=== PATIENT | female | born 1965 | race Caucasian/White ===

== ENCOUNTER → 2020-07-21 | Outpatient (CLI) | payer OTHER ==
[~2020-07-21] MED LIST: FLUOXETINE HCL40 MG PO; FOLIC ACID 1 MG1 MG PO; FUROSEMIDE20 MG PO; GABAPENTIN800 MG PO; K-DUR TAB 20 M20 MEQ PO; LASIX TAB 20 MG20 MG PO; LEVOTHYROXINE112 MCG PO; NEUPOGEN SC; OMEPRAZOLE40 MG PO; OXYCODONE HCL10 MG PO; OXYCODONE HCL5 MG PO; PANTOPRAZOLE SO40 MG PO; POTASSIUM CHLO20 ME1 PO; VENTOLIN HFA 66.7 GM INH; VIREAD300 MG PO
== END ==
LOC: CT 07-15 11:00
DX: R91.1 Solitary pulmonary nodule (principal); R16.2 Hepatomegaly with splenomegaly, not elsewhere classified; R59.0 Localized enlarged lymph nodes; N64.9 Disorder of breast, unspecified
CPT/HCPCS: 71260; 82565; Q9967

== ENCOUNTER → 2020-12-22 | Outpatient (CLI) | payer OTHER | LOC: CT 11-02 10:00 | DX: R93.2 Abnormal findings on diagnostic imaging of liver and biliary tract (principal); D50.9 Iron deficiency anemia, unspecified; B18.2 Chronic viral hepatitis C; L03.116 Cellulitis of left lower limb; D70.9 Neutropenia, unspecified; R16.2 Hepatomegaly with splenomegaly, not elsewhere classified | CPT/HCPCS: 36415; 74150; 82565; Q9967 ==

== ENCOUNTER → 2021-05-02 | Outpatient (CLI) | payer OTHER | LOC: CT 04-27 10:30 | DX: D70.9 Neutropenia, unspecified (principal); D50.9 Iron deficiency anemia, unspecified; B18.2 Chronic viral hepatitis C; L03.116 Cellulitis of left lower limb; R59.0 Localized enlarged lymph nodes; J43.9 Emphysema, unspecified; R91.1 Solitary pulmonary nodule; R16.2 Hepatomegaly with splenomegaly, not elsewhere classified; K76.9 Liver disease, unspecified; R92.1 Mammographic calcification found on diagnostic imaging of breast | CPT/HCPCS: 71260; Q9967 ==